=== PATIENT | male | born 1975 | race Caucasian/White ===

== ENCOUNTER 2018-03-18 02:36 | Emergency (ER) | payer MEDICAID ==
--- NOTE | 2018-03-18 03:07 | EDPHY ---
H & P Stated Complaint: psych med ques Time Seen by Provider: 03/18/18 02:55 HPI/ROS: Chief Complaint: Medication refill HPI: 42-year-old male with a history of schizoaffective disease presenting requesting medication refill. Patient states he has and has med for about 20 days. He has not had time to get in to [facility] or to get his medication refilled. He was up with snf today with felt unsafe with the other residents around him. He tried to call a cab to taken 2 hr to get there. Ultimately called 911 contacted police. Police brought him here because he requested to speak with someone about his medications. He denies being suicidal or homicidal. He is not hallucinating. He states that he has not had a chance to fill his meds. He is worried about missing work and losing his job. He is not feel like does anybody out to get him. He was just feeling nervous this morning. He normally takes Geodon Synthroid and Strattera but does not recall his current doses. He is currently alon for safety. ROS: 10 systems were reviewed and were negative except those elements noted in the HPI. PMH: Schizoaffective disease Social History: Positive smoking Family History: non-contributory Physical Exam: Gen: Awake, Alert, No Distress HEENT: Nose: no rhinorrhea Eyes: PERRLA, EOMI Mouth: Moist mucosa Neck: Supple, no JVD Chest: nontender, lungs clear to auscultation Heart: S1, S2 normal, no murmur Abd: Soft, non-tender, no guarding Back: no CVA tenderness, no midline tenderness Ext: no edema, non-tender Skin: no rash Neuro: CN II-XII intact, Sensation grossly intact, Strength 5/5 in bilateral upper and lower extremities - Personal History Current Tetanus/Diphtheria Vaccine: Unsure Current Tetanus Diphtheria and Acellular Pertussis (TDAP): Unsure - Medical/Surgical History Hx Asthma: No Hx Chronic Respiratory Disease: No Hx Diabetes: No Hx Cardiac Disease: No Hx Renal Disease: No Hx Cirrhosis: No Hx Alcoholism: No Hx HIV/AIDS: No Hx Splenectomy or Spleen Trauma: No Other PMH: pschizophrenia chronic back pain, hypothroid, depression, psych - Social History Smoking Status: Current every day smoker Constitutional: Initial Vital Signs Temperature (C) 36.7 C 03/18/18 02:41 Heart Rate 87 03/18/18 02:41 Respiratory Rate 16 03/18/18 02:41 Blood Pressure 107/72 03/18/18 02:41 O2 Sat (%) 96 03/18/18 02:41 O2 Delivery Mode Room Air Allergies/Adverse Reactions: No Known Allergies Allergy (Verified 02/06/15 17:06) Home Medications: Medication Instructions Recorded Atomoxetine HCl [Strattera] 80 mg PO DAILY #10 capsule 03/18/18 Levothyroxine [Synthroid 200 mcg 200 mcg PO DAILY06 #10 tab 03/18/18 (*)] Ziprasidone HCl [Geodon 40MG (*)] 40 mg PO BID #20 cap 03/18/18 Medical Decision Making ED Course/Re-evaluation: Patient presenting requesting his psychiatric medications. He he does not meet criteria for mental health hold at this time. He is not gravely disabled, he has insight. He is not suicidal homicidal. He is not loosening. [facility] They have confirmed his doses of Geodon 40 mg twice a day, Strattera 80 mg once a day, levothyroxine 200 mcg daily, carbamazepine 200 mg in the morning, 4 mg in the evening. He states that he has his carbamazepine. He has been doses of the medications. I will write prescription for 10 days supply. He will otherwise follow up with [facility]. Departure - Departure Disposition: Home, Routine, Self-Care Clinical Impression: Medication refill Condition: Good Instructions: Medicine Refill (ED) Additional Instructions: Follow up at [facility] later today for further evaluation. Referrals: [facility] [Cl[facility]] - As per Instructions Prescriptions: Atomoxetine HCl [Strattera] 80 mg PO DAILY #10 capsule Levothyroxine [Synthroid 200 mcg (*)] 200 mcg PO DAILY06 #10 tab Ziprasidone HCl [Geodon 40MG (*)] 40 mg PO BID #20 cap
[2018-03-18] MEDS ORDERED: LEVOTHYROXINE 200 MCG TAB PO ONE (03:23)
[2018-03-18] MEDS ORDERED: ATOMOXETINE 25 MG CAP PO ONE ×2 (03:23→03:45)
[2018-03-18] MEDS ORDERED: ZIPRASIDONE HCL 40 MG CAP PO ONE (03:23)
[2018-03-18 03:45] VITALS: BP 110/72
--- NOTE | 2018-03-18 17:15 | GCON ---
DATE OF CONSULTATION: 03/18/2018 HISTORY OF PRESENT ILLNESS: The patient is a pleasant 42-year-old gentleman who has schizoaffective disorder, presented to the emergency department today for medication refill. It has been a number of days since he had them. He was found to be gravely disabled and is being admitted to the Behavioral Health Service for further management. When I speak with the patient, he denies recent fever, chill s, cough. He said he has a bit of a sore throat. He does smoke cigarettes. He is not short of mara th. He denies any painful areas of the skin, unexpected weight loss. He does not use injection drug s or drink alcohol. REVIEW OF SYSTEMS: Complete 10-point review of systems was conducted and negative, except as noted i n the HPI. PAST MEDICAL HISTORY: Schizoaffective disorder, hypothyroidism. SOCIAL HISTORY: Currently homeless, staying with a friend. Smokes cigarettes. Does not drink alcoh ol. FAMILY HISTORY: Reviewed and unremarkable. ALLERGIES: No known drug allergies. MEDICATIONS: Strattera, levothyroxine 200, ziprasidone 80. PHYSICAL EXAM: PRESENTING VITALS: Temp 36.7, blood pressure 107/72, pulse 87, breathing 16 times a minute, 96% on room air. GENERAL: No acute distress. HEENT: Sclerae anicteric. Multiple facial t attoos. Oropharynx is clear. Mucous membranes are moist. NECK: Supple, without lymphadenopathy or JVD. LUNGS: Clear to auscultation bilaterally. HEART: S1, S2. ABDOMEN: Soft, nontender, nondis tended. LOWER EXTREMITIES: Without edema. Calves are nontender. SKIN: Without rash. NEUROLOGIC: Nonfocal. LABS: Pending at this time. I have discussed the case with Dr. Christos Barragan. ASSESSMENT/PLAN: A 42-year-old gentleman with schizoaffective disorder, here with pending admission to Behavioral Health. 1. Schizoaffective disorder. Recommend continuing medications, being admitted to Behavioral Health. 2. Hypothyroidism. I have written to check a TSH. 3. On medical evaluation, I have written for a CBC and a Chem-7. The patient appears euvolemic. 4. History of smoking. Recommend cessation, but probably at a time when he is not decompensated psy chiatrically. 5. Disposition to Behavioral Health. 6. Thank you for this consultation. Hospital Medicine will not follow. Please call with questions. /[id number]/MODL
== END 2018-03-18 03:44 | disposition home or self-care (01) ==
DX: Z76.0 Encounter for issue of repeat prescription (principal); F20.9 Schizophrenia, unspecified; F17.200 Nicotine dependence, unspecified, uncomplicated

== ENCOUNTER 2018-03-18 05:08 | Inpatient (IN) | payer MEDICAID, OTHER ==
[2018-03-18] MEDS ORDERED: LORazepam 1 MG TAB ONE (05:14)
[2018-03-18] MEDS ORDERED: LORazepam 1 MG TAB PO ONE (05:16)
--- NOTE | 2018-03-18 05:17 | EDPHY ---
H & P - Medical/Surgical History Hx Asthma: No Hx Chronic Respiratory Disease: No Hx Diabetes: No Hx Cardiac Disease: No Hx Renal Disease: No Hx Cirrhosis: No Hx Alcoholism: No Hx HIV/AIDS: No Hx Splenectomy or Spleen Trauma: No Other PMH: pschizophrenia chronic back pain, hypothroid, depression, psych - Social History Smoking Status: Current every day smoker Time Seen by Provider: 03/18/18 05:10 HPI/ROS: Chief Complaint: Agitation, paranoia HPI: 42-year-old male with a history of schizophrenia who was seen earlier this morning by me requesting medications. At that time patient states he was feeling a little bit anxious but thought his medications would help him. He received his Geodon, Strattera and levothyroxine at that time. Since being discharged in the emergency department he says he is feeling increasingly agitated and paranoid. He feels that there are people out there who were after him. Denies being suicidal or homicidal. He does have a history schizophrenia but has been off of his meds for the last 20 days or so. I did give him prescriptions for those medications for 10 days here. He does not feel safe going outside the hospital and is requesting to speak with the mental health sprinkler repair technician. ROS: 10 systems were reviewed and were negative except those elements noted in the HPI. PMH: Schizophrenia Social History: Positive smoking Family History: non-contributory Physical Exam: Gen: Awake, Alert, agitated HEENT: Nose: no rhinorrhea Eyes: PERRLA, EOMI Mouth: Moist mucosa Neck: Supple, no JVD Chest: nontender, lungs clear to auscultation Heart: S1, S2 normal, no murmur Abd: Soft, non-tender, no guarding Back: no CVA tenderness, no midline tenderness Ext: no edema, non-tender Skin: no rash Neuro: CN II-XII intact, Sensation grossly intact, Strength 5/5 in bilateral upper and lower extremities (Ruel Barragan) Constitutional: Initial Vital Signs Temperature (C) 36.5 C 03/18/18 05:10 Heart Rate 91 03/18/18 05:10 Respiratory Rate 18 03/18/18 05:10 Blood Pressure 115/72 03/18/18 05:10 O2 Sat (%) 92 03/18/18 05:10 O2 Delivery Mode Room Air Allergies/Adverse Reactions: No Known Allergies Allergy (Verified 02/06/15 17:06) Home Medications: Medication Instructions Recorded Atomoxetine HCl [Strattera] 80 mg PO DAILY #10 capsule 03/18/18 Levothyroxine [Synthroid 200 mcg 200 mcg PO DAILY06 #10 tab 03/18/18 (*)] Ziprasidone HCl [Geodon 40MG (*)] 40 mg PO BID #20 cap 03/18/18 Medical Decision Making ED Course/Re-evaluation: 700: The patient is signed out to me at change of shift. The patient is stable. Reviewed the patient's laboratory studies. The patient's potassium was 3.0. He was given potassium chloride 40 mEq orally. He is awaiting psychiatric evaluation. (Maria Ines Alonso) 42-year-old male with a history of schizophrenia who is been off his medications. He is increasingly agitated and paranoid at this time. He received Geodon, Strattera and levothyroxine when he was here earlier, his usual medications. He will be placed on a detain her. He is here voluntarily. Will give him some Ativan to help him calm down. [address]700 patient signed out to Dr. Alonso pending mental health evaluation. (Ruel Barragan) - Data Points Laboratory Results: Laboratory Results 03/18/18 05:37 03/18/18 05:37 03/18/18 03/18/18 05:37 05:37 WBC 8.41 10^3/uL 10^3/uL (3.80-9.50) RBC 4.57 10^6/uL 10^6/uL (4.40-6.38) Hgb 13.9 g/dL g/dL (13.7-17.5) Hct 39.4 % L % (40.0-51.0) MCV 86.2 fL fL (81.5-99.8) MCH 30.4 pg pg (27.9-34.1) MCHC 35.3 g/dL g/dL (32.4-36.7) RDW 13.4 % % (11.5-15.2) Plt Count 247 10^3/uL 10^3/uL (150-400) MPV 10.7 fL fL (8.7-11.7) Neut % (Auto) 67.3 % % (39.3-74.2) Lymph % (Auto) 19.1 % % (15.0-45.0) [place] % (Auto) 11.3 % % (4.5-13.0) Eos % (Auto) 1.3 % % (0.6-7.6) Baso % (Auto) 0.6 % % (0.3-1.7) Nucleat RBC Rel Count 0.0 % % (0.0-0.2) Absolute Neuts (auto) 5.66 10^3/uL 10^3/uL (1.70-6.50) Absolute Lymphs (auto) 1.61 10^3/uL 10^3/uL (1.00-3.00) Absolute Monos (auto) 0.95 10^3/uL H 10^3/uL (0.30-0.80) Absolute Eos (auto) 0.11 10^3/uL 10^3/uL (0.03-0.40) Absolute Basos (auto) 0.05 10^3/uL 10^3/uL (0.02-0.10) Absolute Nucleated RBC 0.00 10^3/uL 10^3/uL (0-0.01) Immature Gran % 0.4 % % (0.0-1.1) Immature Gran # 0.03 10^3/uL 10^3/uL (0.00-0.10) Sodium 138 mEq/L mEq/L (135-145) Potassium 3.0 mEq/L L mEq/L (3.3-5.0) Chloride 105 mEq/L mEq/L (97-110) Carbon Dioxide 23 mEq/l mEq/l (22-31) Anion Gap 10 mEq/L mEq/L (8-16) BUN 12 mg/dL mg/dL (7-23) Creatinine 0.8 mg/dL mg/dL (0.7-1.3) Estimated GFR > 60 Glucose 107 mg/dL H mg/dL (70-100) Calcium 9.2 mg/dL mg/dL (8.5-10.4) Ethyl Alcohol < 10 mg/dL mg/dL (0-10) Medications Given: Discontinued Medications Lorazepam (Ativan) 2 mg PO EDNOW ONE Stop: 03/18/18 05:17 Last Admin: 03/18/18 05:20 Dose: 2 mg Departure - Departure Referrals: NONE *PRIMARY CARE P,. [Primary Care Provider] - As per Instructions
[2018-03-18 05:45] LABS: PLATELET COUNT 247 10^3/uL (150-400)
[2018-03-18] MEDS ORDERED: POTASSIUM CL 20 MEQ/15 ML UDCUP PO ONE (06:56)
[2018-03-18] MEDS ORDERED: POTASSIUM CL 20 MEQ TAB ONE (10:30)
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
--- NOTE | 2018-03-18 16:21 | ASMTTCLDSP ---
TLC Discharge Disposition Disposition: Answers: Admit Disposition Notes: Notes: In consultation with [facility] ED physician, Cedric Mohamud MD and on-call CARE TEAM ASSISTANT, Andrey Sal, both concurred that pt appears to meet 27-65 criteria requiring psychiatric hospitalization as pt appears to be at risk of harm to self/others/gravely disabled due to a mental illness condition. Pt was given the 3[facility] prohibited belongings list while in the ED. Was patient given the Answers: Yes Inpatient Behavioral Health Prohibited Belongings List while in the ED? For inpatient Andrey Sal APN admission, the following psychiatrist agreed to accept patient for admission to Behavioral Health ([facility]): Type of Hold: Answers: M1/72-hour Hold Hold initiated by: Answers: ED Physician Date Signed: 03/18/2018 04:16 PM Electronically Signed By:Haleigh Galicia
[2018-03-18] MEDS ORDERED: OLANZapine DISINTEGR 5 MG TAB PO PRN (22:10)
[2018-03-18] MEDS ORDERED: NICOTINE POLACRILEX 2 MG GUM B PRN (22:10)
[2018-03-18] MEDS ORDERED: LORazepam 0.5 MG TAB PO PRN (22:10)
[2018-03-18] MEDS ORDERED: MAGNESIUM HYDROXIDE 30 ML UDCUP PO PRN (22:10)
[2018-03-18] MEDS ORDERED: MAG HYDROX/AL HYDROX/SIMETH 30 ML UDCUP PO PRN (22:10)
[2018-03-18] MEDS ORDERED: ACETAMINOPHEN 325 MG TAB PO PRN (22:10)
[2018-03-18] MEDS ORDERED: MELATONIN 3 MG TAB PO PRN (22:10)
--- NOTE | 2018-03-19 09:50 | ASMTBHMTP ---
Master Treatment Plan Master Treatment Plan Answers: Mood Instability with for: Psychosis Date: 03/19/2018 Diagnosis on Admission: Schizoaffective Disorder, Bipolar Type Expected length of stay: 3-5 Days Reason for admission: Notes: Per TLC Evaluation - Pt. is a 42 year old single, male with a history of schizophrenia who was seen earlier in the [facility] ED requesting refill of medications. When initially presenting pt had reported feeling nervous but thought his medication would help him. He had received a refill of Geodon, Strattera and Levothyroxine at that time. Since he was discharged in the ED earlier he says he was feeling increasingly agitated and paranoid. He feels that there are people out there who were after him. Pt. had denied SI or HI. Pt. had reported a history of schizophrenia but apparently had been off his medications for the past 20 days. Pt. was given a Rx for his psychiatric medications 10 days ago. Pt. had expressed not feeling safe outside the hospital and requested to be seen by a mental health gasoline pump installer. Patient's stated presenting problems: Notes: "Sometimes things get into my head", and has not been taking medications for the past 2 to 3 days. Pt. reports experiencing auditory and visual hallucinations, and decided to bring himself into the hospital. Patient's goals for treatment: Notes: Take my medications and get my mind clean. Pt. reports wanting to be back to work on Wednesday. Patient's strengths: Notes: Being kind and trying to take care of everyone Identify supports outside of hospital: Notes: Boss/Best Friend and therapist at [facility] Discharge criteria: Notes: Patient will demonstrate more stable mood by discharge. Initial disposition plan/considerations: Notes: Will stay in [facility] until able to rent an apartment with help from maicol Master Treatment Plan Required Signatures Psychiatrist signature: Answers: Psychiatrist: RN on-shift signature: Answers: RN: Patient signature: Answers: Patient: Date Signed: 03/19/2018 09:48 AM Electronically Signed By:Shagufta Bustamante
[2018-03-19] MEDS: NICOTINE 21 MG/24 HR PATCH TD SCH (12:28)
--- NOTE | 2018-03-19 13:02 | ASMTCMCOM ---
CM Note CM Note Notes: Pt and CC completed MTP, signed and placed in chart Pt. reports no upcoming court dates, but added he does have a ticket for camping which he was suppose to pay on last Wednesday. Pt. reports currently being on parole, adding he may need a note for his correction officer reformatory. Pt. reports using only cigarettes, adding he will have to start doing UAs as part of his parole. Pt. denied wanting to quit smoking cigarettes. Pt. denied SI, HI, AVH and paranoia. Pt. reports owning a gun and the gun currently being in his friend's safe. Pt. reports seeing a therapist at the [facility], adding he thinks her name is "Maria Ines". Pt. reports not being able to read. Pt. presents as alert, excitable, talkative, pressured speech, rambling at times, and with a mostly pleasant demeanor. Staff report pt. sleeping 7 hours and being medication compliant. Date Signed: 03/19/2018 01:02 PM Electronically Signed By:Shagufta Bustamante
[2018-03-19] MEDS: ZIPRASIDONE HCL 20 MG CAP PO SCH (18:20)
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
[2018-03-20] MEDS ORDERED: LEVOTHYROXINE 200 MCG TAB PO SCH (06:00)
[2018-03-20 06:39] VITALS: BP 103/68
[2018-03-20] MEDS: ZIPRASIDONE HCL 20 MG CAP PO SCH (08:19)
[2018-03-20] MEDS: NICOTINE 21 MG/24 HR PATCH TD SCH (08:22)
--- NOTE | 2018-03-20 13:10 | PDMN ---
Medical Necessity Medical necessity: Pt meets IP criteria per & MOLLY B-[id number]; est los >2 mn for eval/tx of schizoaffective disorder, bipolar type; admit for further monitoring, safety, med management & stabilization; hx homelessness, TBI, seizures; per H&P & order 03/18/18
--- NOTE | 2018-03-20 14:05 | SOAPPROG ---
SOAP Progress Note Assessment/Plan: Assessment: Patient requesting discharge today. Reports he presented voluntarily to ED for help with psychotic symptoms, feels better now and is eager for discharge so he can get to work early tomorrow morning. Wants to leave today because needs to get stage-makeup he left in [place] at a friend's house, and must have his facial tattoos covered for work. Consistently denies any psychotic symptoms or suicidal thoughts or thoughts to harm others. Has medications at his friend Pierre's home, who is also his boss at [employer] and gave him ultimatum that he will lose his employment if not showing up tomorrow, regardless. States a note from inpatient psych will not help, since he has already missed some other days with various excuses recently. This is his first job and he is learning to be more responsible and accountable for his behaviors. Has [facility] appointment on 03/22. Has meds, doesn't need any at D/C. Will f/u at [facility] for his seizure d/o and hypothyroidism. TSH >200, but normal FT4. Continue with home medications. Discussed with child caregiver, who will assist pt with transportation. Instructed to maintain sobriety from substances, and patient eagerly responds he plans to do so. Okay to drop M-1 and discharge today. Low acute risk. Return to ED or call 911 if any return of psychosis or any thoughts to harm self or others. Patient agreed. States that's why he came in a couple of days ago. Dictated summary to follow. Objective: Vital Signs Temp Pulse Resp BP Pulse Ox 36.7 C 77 16 103/68 95 03/20/18 06:00 03/20/18 06:00 03/20/18 06:00 03/20/18 06:00 03/20/18 06:00 Laboratory Results 03/19/18 12:45 - Time Spent With Patient Time Spent With Patient: 40min - Pending Discharge Pending Discharge Within 24 Hours: No Pending Discharge Within 48 Hours: No ICD10 Worksheet Patient Problems: Problems Problem Status Onset ADHD Acute Methamphetamine intoxication Acute Schizophrenia Acute - ICD10 Problem Qualifiers (1) Schizophrenia (2) Methamphetamine intoxication (3) ADHD
--- NOTE | 2018-03-20 14:17 | ASMTBHDC ---
Notes Note: Notes: Pt reports he has to be at work tomorrow (03/21/18) or he will be fired. Pt. became upset when discussing staying into tomorrow. Pt. stated his only focus is work right now, and if he loses that he will not be motivated to continue treatment. Pt. stated he will stay with his friend/boss Pierre schaffer ([address] [place] [address], [place], [place]). Pt. denied SI, HI, AVH and paranoia. Pt. stated he has an appointment with his therapist, Maria Ines, at [facility] on Wednesday. Pt. presents as alert, anxious about missing work, cooperative, good eye contact, and a mostly pleasant demeanor Staff report pt. sleeping 11 hours and being medication complaint. Date Signed: 03/20/2018 02:16 PM Electronically Signed By:Shagufta Bustamante
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
== END 2018-03-20 14:25 | disposition home or self-care (01) | DRG 885 ==
LOC: BBEH 22:25
PROVIDERS: ADMIT Psychiatry & Neurology Behavioral Neurology & Neuropsychiatry; ATTEND Psychiatry & Neurology Behavioral Neurology & Neuropsychiatry
DX: F25.0 Schizoaffective disorder, bipolar type (principal); E03.9 Hypothyroidism, unspecified; F17.210 Nicotine dependence, cigarettes, uncomplicated; F90.9 Attention-deficit hyperactivity disorder, unspecified type; Z87.820 Personal history of traumatic brain injury
CPT/HCPCS: 80305; G0480

== ENCOUNTER 2018-06-04 01:28 | Emergency (ER) | payer MEDICAID ==
[2018-06-04 01:42] VITALS: BP 130/83
== END 2018-06-04 03:26 | disposition left against medical advice (07) ==
DX: Z53.21 Procedure and treatment not carried out due to patient leaving prior to being seen by health care provider (principal)

== ENCOUNTER 2018-06-18 18:31 | Emergency (ER) | payer SELFPAY ==
--- NOTE | 2018-06-18 18:42 | EDPHY ---
H & P Stated Complaint: suicidal ideation Time Seen by Provider: 06/18/18 18:38 HPI/ROS: HPI: This is a 42-year-old male who presents with Chief Complaint: Suicidal ideation Location: psych Quality: Suicidal ideation Duration: 3 months Signs and Symptoms: Timing: Acute on chronic Severity: Severe Context: Patient has a history of schizophrenia who voluntarily presents with complaints of suicidal thoughts that have been worsening over the last 3 months. Has not taken any of his psychiatric medications for 3 months. He has lost his job. His last inpatient psychiatric admission was in February of 2018 for grave disability. Psychiatric medications include Geodon Strattera. Patient reports that he has had suicidal ideation and attempts x2 in the past, last time was suicidal ideation was February in which he considered suicide by pick up and delivery driver and was taken to [facility] after that incident. He reports that he feels increased agitation and paranoia along with hearing voices and feeling like people are after him. Patient reports that he is extremely depressed and wants to hurt himself. He believes that he would take drugs in over to overdose in order to kill himself. Patient reports that he normally takes Synthroid 175 mcg daily and always has elevated TSH levels. He reports that he has not picked up his medications from [facility] for several months. Modifying Factors: None Comment: ROS: A comprehensive 10 system review of systems is otherwise negative aside from elements mentioned in the history of present illness. MEDICAL/SURGICAL/SOCIAL HISTORY: Medical history: schizophrenia, history of traumatic brain injury, attention deficit hyperactivity disorder by history, chronic back pain, hypothyroidism, depression, seizure disorder Surgical history: Denies Social history: Homeless. In the past his urine drug screen has been positive for methamphetamines and benzodiazepines. He has been arrested in the past for drug cells and has spent time in present. No family support. Follows with [facility] therapist. Has a history of a 5th grade education with 3rd grade reading level. Family history noncontributory. CONSTITUTIONAL: Tidy, cooperative, middle-aged white male, awake and alert, no obvious distress HEENT: Atraumatic and normocephalic, PERRL, EOMI. Nares patent; no rhinorrhea; no nasal mucosal edema. Tympanic membranes clear. Oropharynx clear, no exudate and moist pink mucosa. Airway patent. No lymphadenopathy. No meningismus. Cardiovascular: Normal S1/S2, regular rate, regular rhythm, without murmur rub or gallop. PULMONARY/CHEST: Symmetrical and nontender. Clear to auscultation bilaterally. Good air movement. No accessory muscle usage. ABDOMEN: Soft, nondistended, nontender, no rebound, no guarding, no peritoneal signs, no masses or organomegaly. No CVAT. EXTREMITIES: 2/2 pulses, strength 5/5, no deformities, no clubbing, no cyanosis or edema. NEUROLOGICAL: no focal neuro deficits. GCS 15. SKIN: Warm and dry, tattoo of"fuck life" on either side of mandible no erythema. no rash. Good capillary refill. PSYCH: Poor eye contact, no flight of ideas, disorganized thought process, poor insight and judgment, + auditory hallucinations, visual hallucinations, suicidal ideation with a plan, homicidal ideation,+ paranoia Source: Patient, Old records Exam Limitations: Clinical condition - Personal History Current Tetanus/Diphtheria Vaccine: Yes - Medical/Surgical History Hx Asthma: No Hx Chronic Respiratory Disease: No Hx Diabetes: No Hx Cardiac Disease: No Hx Renal Disease: No Hx Cirrhosis: No Hx Alcoholism: No Hx HIV/AIDS: No Hx Splenectomy or Spleen Trauma: No Other PMH: pschizophrenia chronic back pain, hypothroid, depression, psych - Social History Smoking Status: Heavy smoker Constitutional: Initial Vital Signs Temperature (C) 36.6 C 06/18/18 18:34 Heart Rate 59 L 06/18/18 18:34 Respiratory Rate 16 06/18/18 18:34 Blood Pressure 121/76 H 06/18/18 18:34 O2 Sat (%) 97 06/18/18 18:34 O2 Delivery Mode Room Air Allergies/Adverse Reactions: No Known Allergies Allergy (Verified 06/18/18 18:37) Home Medications: Medication Instructions Recorded Atomoxetine HCl [Strattera] 80 mg PO DAILY #10 capsule 03/18/18 Levothyroxine [Synthroid 200 mcg 200 mcg PO DAILY06 #10 tab 03/18/18 (*)] Ziprasidone HCl [Geodon 40MG (*)] 40 mg PO BID #20 cap 03/18/18 Tegretol 06/04/18 Medical Decision Making ED Course/Re-evaluation: 1900: Patient placed on M1 hold for being gravely disabled with suicidal ideations. Geodon 20 mg twice a day reordered. Labs including TSH and free T4 as well as urine drug screen ordered. 2039: Discussed with mental health who recommends termination of M1 hold as patient has resources at [facility] but refuses to attend his weekly appointments or machine operator picker his medications as prescribed. They do not feel like he is a suicidal risk. They feel comfortable discharging him home with [facility] appointment tomorrow with medication machine operator picker. M1 hold terminated. 2123: Given Synthroid 175 mcg. TSH level greater than 300 which is similar to the value in February. This is not new to the patient. No evidence of thyroid storm. Patient denies homicidal ideation and suicidal ideation at this time to me. He reports that he feels comfortable going to the snf this evening and following up with [facility] in the morning. 2224: Patient given ride and pass to local [facility] [place] [facility] This patient was seen under the supervision of my secondary supervising physician. I evaluated care for this patient independently. Discussed this patient with Dr. Em who did not see the patient. Differential Diagnosis: Differential diagnosis includes but is not limited to major depression, anxiety disorder, schizophrenia, bipolar disorder, intoxicant use, suicidal ideation, psychosis, josé manuel. - Data Points Laboratory Results: Laboratory Results 06/18/18 19:25 06/18/18 19:25 06/18/18 06/18/18 19:25 19:25 WBC 6.52 10^3/uL 10^3/uL (3.80-9.50) RBC 4.87 10^6/uL 10^6/uL (4.40-6.38) Hgb 14.8 g/dL g/dL (13.7-17.5) Hct 43.8 % % (40.0-51.0) MCV 89.9 fL fL (81.5-99.8) MCH 30.4 pg pg (27.9-34.1) MCHC 33.8 g/dL g/dL (32.4-36.7) RDW 14.1 % % (11.5-15.2) Plt Count 278 10^3/uL 10^3/uL (150-400) MPV 10.3 fL fL (8.7-11.7) Neut % (Auto) 56.4 % % (39.3-74.2) Lymph % (Auto) 32.2 % % (15.0-45.0) [place] % (Auto) 6.6 % % (4.5-13.0) Eos % (Auto) 3.1 % % (0.6-7.6) Baso % (Auto) 1.4 % % (0.3-1.7) Nucleat RBC Rel Count 0.0 % % (0.0-0.2) Absolute Neuts (auto) 3.68 10^3/uL 10^3/uL (1.70-6.50) Absolute Lymphs (auto) 2.10 10^3/uL 10^3/uL (1.00-3.00) Absolute Monos (auto) 0.43 10^3/uL 10^3/uL (0.30-0.80) Absolute Eos (auto) 0.20 10^3/uL 10^3/uL (0.03-0.40) Absolute Basos (auto) 0.09 10^3/uL 10^3/uL (0.02-0.10) Absolute Nucleated RBC 0.00 10^3/uL 10^3/uL (0-0.01) Immature Gran % 0.3 % % (0.0-1.1) Immature Gran # 0.02 10^3/uL 10^3/uL (0.00-0.10) Sodium 139 mEq/L mEq/L (135-145) Potassium 4.5 mEq/L mEq/L (3.5-5.2) Chloride 108 mEq/L mEq/L (97-110) Carbon Dioxide 23 mEq/l mEq/l (22-31) Anion Gap 8 mEq/L mEq/L (6-14) BUN 10 mg/dL mg/dL (7-23) Creatinine 1.1 mg/dL mg/dL (0.7-1.3) Estimated GFR > 60 Glucose 94 mg/dL mg/dL (70-100) Calcium 9.1 mg/dL mg/dL (8.5-10.4) TSH 338.000 uIU/mL H uIU/mL (0.465-4.680) Free T4 < 0.07 ng/dL L* ng/dL (0.59-2.19) Ethyl Alcohol < 10 mg/dL mg/dL (0-10) Medications Given: Discontinued Medications Levothyroxine Sodium (Synthroid) 175 mcg PO EDNOW ONE Stop: 06/18/18 22:16 Last Admin: 06/18/18 22:31 Dose: 175 mcg Ziprasidone (Geodon) 20 mg PO EDNOW ONE Stop: 06/18/18 22:16 Last Admin: 06/18/18 22:31 Dose: 20 mg Departure - Departure Disposition: Home, Routine, Self-Care Clinical Impression: Paranoid schizophrenia, Verbalizes suicidal thoughts, Noncompliance with medication regimen Hypothyroidism Qualifiers: Hypothyroidism type: unspecified Qualified Code(s): E03.9 - Hypothyroidism, unspecified Condition: Good Instructions: Depression (ED), Schizophrenia (ED), Suicide Prevention (ED) Additional Instructions: Please go to your appointment at [facility] tomorrow to machine operator picker your medications. Please take Geodon 20 mg twice daily as prescribed. Take Synthroid daily as prescribed. Call 911 if you have thoughts of hurting or killing yourself or anyone else, or have any new or worsening symptoms that concern you. Referrals: [facility],. [Clinic] - As per Instructions [facility],. [Clinic] - As per Instructions
[2018-06-18 19:40] LABS: PLATELET COUNT 278 10^3/uL (150-400)
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
[2018-06-18] MEDS ORDERED: ZIPRASIDONE HCL 20 MG CAP PO ONE (22:15)
[2018-06-18] MEDS ORDERED: LEVOTHYROXINE 175 MCG TAB PO ONE (22:15)
[2018-06-18 22:32] VITALS: BP 137/70
== END 2018-06-18 22:51 | disposition home or self-care (01) ==
DX: F20.0 Paranoid schizophrenia (principal); R45.851 Suicidal ideations; E03.9 Hypothyroidism, unspecified; M54.9 Dorsalgia, unspecified; G89.29 Other chronic pain
CPT/HCPCS: G0480